=== PATIENT | female | born 1970 | race Caucasian/White ===

== ENCOUNTER 2018-06-29 11:07 | Day surgery (SDC) | payer OTHER ==
[~2018-06-29 11:07] MED LIST: BUPIV. HCL 0.5% (5MG/ML)/EPI. (1:200,000) PF 30 ML VIAL IJ ONE; LACTATED RINGERS 1,000 ML IV.SOLN IV ONE; LIDOCAINE HCL 1% PF 300MG/30ML VIAL ONE; LORazepam 2 MG/ML VIAL ONE; MIDAZOLAM HCL 2 MG/2 ML VIAL ONE; fentaNYL CITRATE/PF 100 MCG/2 ML INJ. ONE
[2018-06-29] MEDS ORDERED: LORazepam 2 MG/ML VIAL ONE (14:16)
== END 2018-06-29 15:50 | disposition home or self-care (01) ==
LOC: OPSURG 11:07
PROVIDERS: ATTEND Physical Medicine & Rehabilitation
DX: M46.1 Sacroiliitis, not elsewhere classified (principal); M47.817 Spondylosis without myelopathy or radiculopathy, lumbosacral region
CPT/HCPCS: 64635; 64636; J2001; J2060; J2250; J3010; J7120